=== PATIENT | female | born 1990 | race Caucasian/White ===

== ENCOUNTER 2016-04-24 16:04 | Inpatient (IN) ==
[2016-04-24] MEDS ORDERED: Naloxone 0.4 MG/ML INJ IVP PRN (16:58)
[2016-04-24] MEDS ORDERED: Famotidine 20 MG/2 ML VIAL IVP PRN (16:58)
--- NOTE | 2016-04-24 17:05 | OB/GYN History & Physical ---
Date of Encounter: 04/24/16 Time of Encounter: 17:00 Assessment and Plan (1) 40 weeks gestation of Current visit: Yes Status: Acute admit for IOL for nonreassuring surveillance post dates (2) Obesity affecting in third trimester Current visit: Yes Status: Acute admitted for IOL History of Present Illness Chief complaint: 40w1d BPP 6/[address] Manzano HPI: Ms. Sun is a 25 year old female at 40w1d with edc of 04/23/2016. Patient was seen in OB office today ultrasound BPP 6/8 no breathing noted, RENE 12cm, EFW 6#8oz 19th%tile. Dr. Manzano recommends delivery. Blood type: B Negative, Rubella: Immune, Hep B: Nonreactive, GBS: Negative. Past Med Surg Social Fam HX - Past Medical History Source: patient Medical history: no medical history Psychiatric history: anxiety - Past Surgical History Surgical History: no surgical history - Social History Smoking Status: Never smoker Smokeless Tobacco Status: No Alcohol use: none Drug use: none Occupational status: employed Current living situation: Home - Independent Activity Level: Independent ambulation Recent Out of Country Travel Within the Last 8 Weeks: No Exposure or Possible Exposure to Illness During Travel: No - Family History Maternal Grandfather Adopted: [place]: [place] Family Member Ethnicity: Non- Living Status: Still Living Hx Family Cardiac Disorders: Yes (pacemaker, angina, coronary artery disease, [place] ) Hx Family Respiratory Disorders: No Hx Family Cancer: No Hx Family GI Disorders: Yes (flipped stomach) Hx Family Genitourinary Disorders: No Hx Family Endocrine Disorder: No Hx Family Musculoskeletal Disorders: No Hx Family Neuromuscular Disorders: No Hx Family Neurologic Disorders: No Hx Family HEENT Disorders: No Hx Family Autoimmune Disorders: No Hx Family Reproductive Disorders: No Hx Family Psychosocial Disorders: No Hx Family Medical Disorders: No Obstetrical History - Pregnancies : 1 Para: 0 Term: 0 : 0 Ab's: 0 Livin Medications and Allergies [id number]/FA/Omega3/Dha/Fish Oil [ Gummies] 1 each PO DAILY #30 tab.chew [Rx] Docusate [Colace] 100 mg PO BID 01/24/16 [History] Omeprazole Magnesium [Prilosec Otc] 20 mg PO BID 01/24/16 [History] Allergies No Known Allergies Allergy (Verified 02/12/16 16:49) Review of System OB - Constitutional Constitutional ROS IM: no chills, no fever(s), no headache(s) - Cardiovascular Cardiovascular: no chest pain, no dyspnea, no palpitations, no syncope - Respiratory Respiratory: no dyspnea - Gastrointestinal Gastrointestinal: no abdominal pain, no constipation, no cramping, no diarrhea, no heartburn, no nausea, no vomiting - Genitourinary Genitourinary: no abnormal vaginal bleeding, no dysuria, no flank pain, no urinary frequency, no urinary hesitancy, no urinary incontinence, no urinary urgency, no vaginal discharge, no vaginal odor, no vaginal pruritis Exam - Constitutional Constitutional: well developed, well nourished, no acute distress, average body habitus - HEENT HEENT: Normocephaly, Mucus Membranes Moist - Neck Neck exam: full ROM, supple - Lungs Respiratory exam: CTAB - Cardiovascular Cardiovascular exam: RRR, +S1, +S2 - Abdomen Abdomen: Present: bowel sounds normal, gravid, non tender - Extremities Extremities exam: full ROM, normal capillary refill Deep Tendon Reflex Grade: 2+ Normal - Cervix Dilation: 0 (FT) Effacement: 50 Station: -1 - Uterus Uterus exam: Present: normal size, normal contour - Anus/Rectum Anus/Rectum: Present: normal perianal skin - Comments Comments: FHR 135 bpm moderate variability +15x15 accels no decels noted. CAt. 1 tracing. Irregular contractions noted. Results All other labs normal. - VTE Reasons for not Prescribing Prophylaxis: Treatment not Indicated - Low risk for VTE
[2016-04-24 17:12] LABS: Basophils % 0.2 %; Eosinophils # 0.1 K/mcL (0.0-0.6); Eosinophils % 0.7 %; Hematocrit 33.8 % (35.3-44.9); Hemoglobin 10.8 g/dL (11.5-15.4); Immature Granulocytes % 0.4 % (0-4); Mean Corpuscular Hemoglobin 24.5 pg (28.0-33.3); Mean Corpuscular Volume 76.6 fL (83.0-100.0); Mean Platelet Volume 9.1 fL (9.4-12.4); Monocytes # 0.6 K/mcL (0.0-1.3); Monocytes % 4.4 %; Neutrophils # 10.8 K/mcL (1.6-8.9); Platelet Count 301 K/mcL (140-400); Red Blood Count 4.41 M/mcL (3.82-4.97); Segmented Neutrophils % 79.3 %
[2016-04-24 17:23] LABS: Alanine Aminotransferase 8 Units/L (0-55); Aspartate Amino Transferase 11 Units/L (5-34); BUN/Creatinine Ratio 18 (6-26); Blood Urea Nitrogen 12 mg/dL (7-20); Lactate Dehydrogenase 134 Units/L (159-327); Uric Acid 3.8 mg/dL (2.6-6.0); eGFR For African Americans > 60 (> 60); eGFR For Non-African Americans > 60 (> 60)
[2016-04-24] MEDS ORDERED: miSOPROStol 25 MCG TABLET VG PRN (18:04)
[2016-04-24] MEDS ORDERED: miSOPROStol 25 MCG TABLET PO PRN (18:05)
--- NOTE | 2016-04-24 22:23 | OB Labor Progress Note ---
Date of Encounter: 04/24/16 Time of Encounter: 22:21 Labor Progress Note - Subjective Subjective: Pt with minimal pain at this time. - Cervix Cervix: /-2 - Heart Tones Heart Tones: Category I - [place]: 1.5-3 minutes - Interventions Interventions: Ya placed in cervix using sterile technique. Balloon inflated with 30ml sterile water. - Plan Plan: Continue to monitor. Will continue cytotec for induction and AROM when able. Pt may have epidural if and when desired.
[2016-04-24] MEDS ORDERED: *HR* Nalbuphine 20 MG/ML AMPUL ONE (22:55)
[2016-04-24] MEDS: Ondansetron 4 MG/2 ML VIAL IVP PRN (22:59)
[2016-04-24] MEDS: *HR* Nalbuphine 20 MG/ML AMPUL IVP PRN (23:00)
[2016-04-24] MEDS: Ringers Solution, Lactated 1,000 ML IVC SCH (23:00)
[2016-04-25] MEDS: Ringers Solution, Lactated 1,000 ML IVC SCH ×2 (03:02→06:39)
[2016-04-25] MEDS ORDERED: Oxytocin 20 units/ LR 1000 mL 20 UNIT/1,000 ML BAG IVC SCH (04:28)
[2016-04-25] MEDS: *HR* Nalbuphine 20 MG/ML AMPUL IVP PRN (05:46)
--- NOTE | 2016-04-25 07:05 | Anesthesia Evaluation PreOp ---
Date of Encounter: 04/25/16 Time of Encounter: 06:50 - Past History Planned Operation: epidural Cardiac History: Other ( patient states has occasional chest pain, was told is caused from stress, no heart murmur, or irregular heart beats noted on auscultation, patient can climb stairs without difficulty) Pulmonary History: Denies Any Significant HX IMPROVEMENT RN History: Denies Any Significant HX Other Medical History: Denies Any Significant HX Anesthesia History: No Prior Anesthetic Complications (never had anesthesia) : Yes Test: Positive Alcohol Use: none Drug use: none Medications and Allergies Wsp709/FA/Omega3/Dha/Fish Oil [ Gummies] 1 each PO DAILY #30 tab.chew [Rx] Docusate [Colace] 100 mg PO BID 01/24/16 [History] Omeprazole Magnesium [Prilosec Otc] 20 mg PO BID 01/24/16 [History] Allergies No Known Allergies Allergy (Verified 02/12/16 16:49) - Meds/Allergy Pre-op Review Medications Reviewed: Yes Allergies Reviewed: Yes Beta Blockers on Current Med List: No Anesthesia Results - Labs 04/24/16 17:00 04/24/16 17:00 Anesthesia Exam 3 Vital Signs Time 0655 BP 147/83 Pulse 75 Resp 18 O2 Sat Height: 64 Weight: 108 kg NPO (# of Hours): 9 pm solids Pain Scale: 7 Pain Scale Used: Numeric (1 - 10) - HEENT Pupil (Motor): Pupils equal (lower lip studs removed) Mallampati: II Teeth: Normal Oral Opening: Greater than 3 - IMPROVEMENT RN LOC: Oriented IMPROVEMENT RN Motor: Normal RUE, Normal LUE, Normal RLE, Normal LLE, Normal Face IMPROVEMENT RN Sensory: Normal: RUE, LUE, RLE, LLE, Face - Cardiac Rhythm: Regular Murmur: None JVD: No Carotid Bruit: No - Pulmonary Breath Sounds: bilateral Clear Respiratory Effort: Symmetrical Anesthesia Assess/Plan ASA Score: 2 Modified Iker Scale for Level of Consciousness: Cooperative, oriented, and tranquil Anesthetic Plan: Regional Recovery Plan: Other
[2016-04-25] MEDS ORDERED: Epidural Premix (fent/bupiv) 110 ML EP ONE (07:06)
[2016-04-25] MEDS ORDERED: *HR* FentaNYL (PF) 100 MCG/2 ML VIAL ONE ×2 (07:06→12:49)
[2016-04-25] MEDS ORDERED: *HR* Ropivacaine/PF 0.2% 10 ML AMPUL ONE (07:06)
[2016-04-25] MEDS ORDERED: Epidural Premix (fent/bupiv) 110 ML EP SCH (07:15)
[2016-04-25] MEDS ORDERED: *HR* FentaNYL (PF) 100 MCG/2 ML VIAL EP ONE (07:15)
[2016-04-25] MEDS ORDERED: Bupivacaine-MPF 0.25% 10 ML VIAL EP ONE (07:15)
--- NOTE | 2016-04-25 07:35 | Anesthesia Procedures ---
Date of Encounter: 04/25/16 Time of Encounter: 07:14 Procedures: Anesthesia - Epidural/Spinal Patient ID/Chart reviewed: Yes Patient examined: Yes OB Eval: Gestational age: 40.2 OB Eval: : 1 OB Eval: Hx Para: 0 OB Eval: Dilated at (cm): 5 OB Eval: Contractions: Non-stressed pattern Consent Obtained: Yes Supplemental Oxygen: None/Room Air Site Prep: Aseptic Technique, Sterile prep and drape, 0.5% Chlorhexidine/Alcohol Patient position: upright Local Anesthetic: Lidocaine 1% Amount of Local Anesthetic used: 2.5 Touhy Needle Gauge: 18 Touhy Needle Depth (cm): 9 Catheter Depth at Skin (cm): 15 Test Dose (1.5% Lido + Epi): Volume given (mls): 5 Test Dose Result: Negative Loading Dose: Fentanyl (mcg): 100 Loading Dose: Other: Ropivacaine 0.2% 10mL Loading Dose Administered: Thru Catheter Infusion Med: 0.125% Bupivacaine w/ 2 mcg/ml Fentanyl Infusion Rate (mls/hr): 14 (Bolus 4mL q15min; Max 3/hr) Catheter Secured in Place: Tegaderm, Tape Interspace Used: L3-L4 Loss of Resistance (AMAN): Yes Blood: No CSF: No Paresthesia: No Procedure: x1 attempt. Patient tolerated well. Vitals + FHT's: VSS and FHR stable throughout procedure. See nursing documentation.
[2016-04-25] MEDS ORDERED: Chloroprocaine/PF 20 ML VIAL INFILT ONE (08:00)
[2016-04-25] MEDS ORDERED: *HR* Morphine Sulfate/PF 5 MG/10 ML AMPUL ONE ×2 (08:01→12:48)
[2016-04-25] MEDS ORDERED: *HR* Oxytocin 10 UNIT/ML VIAL IM ONE ×3 (09:19→14:09)
--- NOTE | 2016-04-25 10:21 | OB Labor Progress Note ---
Date of Encounter: 04/25/16 Time of Encounter: 10:17 Labor Progress Note - Subjective Subjective: Pt now comfortable with epidural. - Cervix Cervix: 5/70/-2 - Heart Tones Heart Tones: Category II, prolonged decelerations noted after epidural placement. Variable decelerations occassionally now. - [place]: 3-5 minutes - Interventions Interventions: AROM performed at 0618 for small amount clear fluid. Epidural given. IUPC and FSE placed. Pt repositioned multiple times. IV bolus given. O2 via facemask. Pitocin off. Dr. Mckeon at bedside. He recommends delivery if late or prolonged decels return. - Plan Plan: Continue to monitor. Restart pitocin when able.
[2016-04-25] MEDS ORDERED: 0.9 % Sodium Chloride 1,000 ML ONE (12:33)
[2016-04-25] MEDS ORDERED: Metoclopramide 10 MG/2 ML VIAL IVP ONE (12:53)
[2016-04-25] MEDS ORDERED: Ketamine *HR* 500 MG/10 ML MDV ONE (13:15)
[2016-04-25] MEDS ORDERED: Ringers Solution, Lactated 1,000 ML ONE ×2 (13:19→14:05)
[2016-04-25] MEDS ORDERED: Lidocaine -MPF 2% 5 ML VIAL INFILT ONE ×2 (13:30→14:35)
[2016-04-25] MEDS ORDERED: *HR* Succinylcholine 200 MG/10 ML VIAL IVP ONE (13:53)
[2016-04-25] MEDS ORDERED: *HR* HYDROmorphone (PF) 1 MG/ML SYRINGE ONE ×2 (13:56→14:39)
[2016-04-25] MEDS ORDERED: Ondansetron 4 MG/2 ML VIAL IVP PRN ×2 (14:28→14:49)
[2016-04-25] MEDS ORDERED: *HR* HYDROmorphone (PF) 1 MG/ML SYRINGE IVP PRN (14:28)
[2016-04-25] MEDS ORDERED: *HR* Promethazine 25 MG/ML VIAL IVP PRN (14:28)
[2016-04-25] MEDS ORDERED: Naloxone 0.4 MG/ML INJ IVP PRN (14:28)
[2016-04-25] MEDS ORDERED: Metoclopramide 10 MG/2 ML VIAL IVP PRN (14:49)
[2016-04-25] MEDS ORDERED: Sennosides 8.6 MG TABLET PO PRN (14:49)
[2016-04-25] MEDS ORDERED: Rho Immune Globulin 1,500 UNIT SYRINGE IM ONE (14:49)
[2016-04-25] MEDS ORDERED: Simethicone 80 MG TAB.CHEW PO PRN (14:49)
[2016-04-25] MEDS ORDERED: Oxytocin 20 units/ LR 1000 mL 20 UNIT/1,000 ML BAG IV SCH (15:00)
[2016-04-25] MEDS ORDERED: Ringers Solution, Lactated 1,000 ML IVC SCH (15:00)
[2016-04-25] MEDS: Ondansetron 4 MG/2 ML VIAL IVP PRN (18:29)
[2016-04-25] MEDS: *HR* OxyCODONE/APAP 5/325 TABLET PO PRN (18:30)
--- NOTE | 2016-04-25 19:30 | Anesthesia Evaluation Post Op ---
Date of Encounter: 04/25/16 Time of Encounter: 15:20 - Vital Signs Vital Signs: Vital Signs 04/25/16 17:05 04/25/16 17:35 04/25/16 18:05 Temperature 98.5 F 98.6 F 98.3 F Pulse Rate 95 98 96 Respiratory Rate 16 16 18 Blood Pressure 145/84 144/84 137/92 O2 Sat by Pulse Oximetry 96 96 96 04/25/16 19:05 Temperature 99.3 F Pulse Rate 98 Respiratory Rate 16 Blood Pressure 135/82 O2 Sat by Pulse Oximetry 98 - Lungs Lungs: Clear Ascult./Percussion - Airway Airway: Non-obstructed - Cardiovascular Regular Rate - Mental Status Mental Status: Alert & Oriented, Answers Appropriately - Pain Pain Scale: 6 Pain Scale used: Numeric (1 - 10) - Nausea Vomiting Nausea Vomiting: Not Present - Hydration Hydration: Tolerates oral liquids - Discharge PostOp Status: Transfer Patient to floor Attestation: MOEx4. Patient alert and communicative. Meets criteria for floor transfer.
[2016-04-26] MEDS: *HR* OxyCODONE/APAP 5/325 TABLET PO PRN ×3 (00:18→21:58)
[2016-04-26 05:14] LABS: Basophils % 0.2 %; Eosinophils % 0.2 %; Immature Granulocytes % 0.6 % (0-4); Immature Platelets 1.9 % (1.1-6.1); Lymphocytes % 11.7 %; Mean Corpuscular HGB Conc 32.5 g/dL (31.6-35.5); Mean Corpuscular Hemoglobin 25.1 pg (28.0-33.3); Mean Corpuscular Volume 77.1 fL (83.0-100.0); Mean Platelet Volume 9.4 fL (9.4-12.4); Monocytes # 0.8 K/mcL (0.0-1.3); Monocytes % 4.8 %; Neutrophils # 13.8 K/mcL (1.6-8.9); Platelet Count 253 K/mcL (140-400); Red Blood Count 3.63 M/mcL (3.82-4.97); Segmented Neutrophils % 82.5 %
[2016-04-26 05:15] LABS: Hemoglobin 9.1 g/dL (11.5-15.4)
[2016-04-26] MEDS: Ibuprofen 600 MG TABLET PO PRN ×2 (06:38→19:47)
--- NOTE | 2016-04-26 07:39 | OB/GYN Procedure Note ---
Section - Date of procedure: 04/25/16 Preop diagnosis: category 2 FHT tracing Post-op diagnosis: same Procedure: section, primary low transverse Surgeon: Mellissa Mckeon Estimated blood loss (cc): 600 Anesthesiologist: John Rush Trailer Mechanic: Alex Woo Anesthesia Type: Epidural section complications: none Disposition: L&D Recovery Room Specimens: Placenta, Cord blood - Infant (s) A Delivery Date: 04/25/16 Delivery Time: 13:36 Presentation: vertex Gender: Female Gram Weight: 3025 kg at 1 minute: 9 at 5 minutes: 9 Shoulder Dystocia: not encountered Placenta: complete extraction - Narrative Narrative: The patient was brought to the operating suite in stable condition with epidural anesthesia on board and an indwelling catheter in place in the bladder. The patient was placed supine on the operating room table and rolled to her left side with a wedge. The abdomen was prepped and draped in standard fashion for section. After testing with forceps to assure an adequate anesthetic level, the surgery was commenced. With the scalpel, a Pfannenstiel skin incision was made. Dissection was carried down sharply through the subcutaneous tissues and fascia in a transverse plane with the scalpel, electrocautery and curved Kim scissors. The fascia was sharply freed up superiorly and inferiorly from the underlying rectus muscles, which were bluntly and sharply divided. The peritoneum was entered carefully in a clear space with a curved hemostat. The peritoneal incision was then extended bluntly. A retractor and bladder blade were placed. With a scalpel, a low transverse hysterotomy was commenced. The serosa and myometrium were scored with the scalpel. The uterine cavity was actually entered bluntly. The uterine incision was then extended laterally with the automatic operator's fingers. An intrauterine hand was placed and the head of the was brought up out of the pelvis into the uterine incision. With fundal pressure, he was delivered without difficulty. The nasopharynx and oropharynx were suctioned. The cord was doubly clamped and transected. The infant was then handed off to the nursery personnel. Further cord blood was collected for routine testing. Intravenous Pitocin and antibiotics were administered. The placenta was manually removed. The uterine cavity was then curetted with a dry sponge and freed of the remaining membranes. The edges of the uterine incision were grasped with Nicolas clamps. With the massage and the Pitocin , the uterus began to firm up normally. The uterine incision was then closed in 1 layers of 0 Vicryl suture. The uterine incision was reinspected to assure hemostasis. The uterus, tubes and ovaries were inspected and were normal. Once we were satisfied with the hemostasis, attention was turned to closure of the abdominal incision. The fascia was closed in using 0-Vicryl sutures. The subcutaneous tissue was closed with 3-0 vicryl sutures. The skin was closed with a subcuticular suture of 4-0 Vicryl followed by benzoin, Steri-Strips and a Telfa dressing. The patient was moved to the recovery room in stable condition with the Ya catheter draining clear urine. Instruments, sponge and needle counts were reported as correct. Estimated blood loss was 600 mL. There were no complications.
[2016-04-26] MEDS: Prenatal Vit/FA 1 EACH TABLET PO SCH (08:17)
--- NOTE | 2016-04-26 09:28 | OB/GYN Progress Note ---
Date of Encounter: 04/26/16 Time of Encounter: 09:27 - Assessment and Plan (1) delivery delivered Current Visit: Yes Status: Acute Pt meeting POD#1. Plan to ambulate in hallway today. Await flatus. Anticipate discharge home POD#2-3. (2) anemia Current Visit: Yes Status: Acute (3) Mother currently breast-feeding Current Visit: Yes Status: Acute Subjective - Subjective Patient reports: appetite normal, voiding normally, pain well controlled, ambulating normally [place]: doing well Objective - Vital Signs Latest vital signs: Vital Signs Temp Pulse Resp BP Pulse Ox 04/26/16 08:32 18 04/26/16 05:09 98.7 F 80 16 118/81 99 04/26/16 05:07 16 04/26/16 00:47 97.6 F 81 14 130/81 97 04/26/16 00:01 14 04/25/16 20:07 98.0 F 94 14 144/91 97 04/25/16 20:05 98.0 F 94 14 144/91 97 04/25/16 19:05 99.3 F 98 16 135/82 98 04/25/16 18:05 98.3 F 96 18 137/92 96 04/25/16 17:35 98.6 F 98 16 144/84 96 04/25/16 17:05 98.5 F 95 16 145/84 96 Intake and Output 04/25/16 04/26/16 04/26/16 23:59 07:59 15:59 Intake Total 300 / 300 Output Total 400 / 400 Balance -400 / -400 300 / 300 Intake: Oral 300 / 300 Output: Catheter 400 / 400 Other: Meal Breakfast Percent of Meal Consumed 50% Weight 109.1 kg 105 kg Patient Weight 04/26/16 23:59 Weight 105 kg - Exam Lungs: bilateral: normal Chest: Normal S1, Normal S2 Extremities: Present: normal, edema (1+ bilaterally) Abdomen: Present: soft Incision: Present: dressed (dressing dry and intact) Uterus: Present: firm - Labs Labs: Laboratory Results - last 24 hr 04/25/16 04/26/16 13:51 04:32 WBC 16.7 H RBC 3.63 L Hgb 9.1 L D Hct 28.0 L MCV 77.1 L MCH 25.1 L MCHC 32.5 RDW 15.0 H Plt Count 253 MPV 9.4 Immature Gran % 0.6 Seg Neutrophils % 82.5 Lymphocytes % 11.7 Monocytes % 4.8 Eosinophils % 0.2 Basophils % 0.2 Neutrophils # 13.8 H Lymphocytes # 2.0 Monocytes # 0.8 Eosinophils # 0.0 Basophils # 0.0 Immature Plt Fraction 1.9 Screen NEGATIVE Baby's Blood Type B RH POSITIVE Mother's Blood Type B RH NEGATIVE Rhogam Indicated YES Rhogam Req for Mother 1
[2016-04-26] MEDS ORDERED: Rho Immune Globulin 1,500 UNIT SYRINGE IM ONE (22:00)
[2016-04-27] MEDS: Prenatal Vit/FA 1 EACH TABLET PO SCH (08:08)
[2016-04-27] MEDS: *HR* OxyCODONE/APAP 5/325 TABLET PO PRN (08:08)
[2016-04-27 10:34] VITALS: BP 127/84
--- NOTE | 2016-04-27 11:02 | OB/GYN Progress Note ---
Date of Encounter: 04/27/16 Time of Encounter: 11:00 - Assessment and Plan (1) delivery delivered Current Visit: Yes Status: Acute Pt states she is feeling well. meeting milestones. Continue current management. (2) anemia Current Visit: Yes Status: Acute continue iron supplementation Subjective - Subjective Interval history: Pt resting in bed with skin to skin. Pt states she is feeling better, but has concerns with and is not feeding well Patient reports: appetite normal : doing well, other (not well. ) Objective - Latest Vital Signs Latest vital signs: Vital Signs Temp Pulse Resp BP Pulse Ox 04/27/16 09:00 97.8 F 79 18 127/84 97 04/27/16 08:16 14 04/27/16 05:19 97.8 F 88 14 116/76 97 04/26/16 20:40 98.2 F 91 16 108/69 99 04/26/16 14:17 18 04/26/16 11:30 98.2 F 88 16 121/77 97 Intake and Output 04/26/16 04/27/16 04/27/16 23:59 07:59 15:59 Intake Total 120 / 120 500 / 500 Output Total 1000 / 1000 700 / 700 Balance -880 / -880 -200 / -200 Intake: Oral 120 / 120 500 / 500 Output: Urine 1000 / 1000 700 / 700 Other: Meal Dinner Breakfast Percent of Meal Consumed 75% 50% Weight 106.5 kg Patient Weight 04/27/16 23:59 Weight 106.5 kg - Exam Lungs: bilateral: normal Chest: Normal S1, Normal S2 Extremities: Present: normal Abdomen: Present: soft Uterus: Present: normal, firm Uterus Position: At Umbilicus
--- NOTE | 2016-04-27 14:10 | Discharge Summary ---
Date of Encounter: 04/27/16 Time of Encounter: 14:10 - Discharge Diagnosis (1) delivery delivered Priority: Primary Status: Acute (2) anemia Priority: Secondary Status: Acute - Discharge Medications Prescriptions: OxyCODONE/APAP 5/325 [Percocet 5/325 MG] 1 each PO Q4HR PRN #30 tablet PRN Reason: Moderate pain 4-6 Ibuprofen [Motrin] 600 mg PO Q6HR PRN #60 tablet PRN Reason: Cramping Ferrous Sulfate 325 mg PO DAILY #60 tablet Home Medications: Ibi033/FA/Omega3/Dha/Fish Oil [ Gummies] 1 each PO DAILY #30 tab.chew [Rx] Docusate [Colace] 100 mg PO BID 01/24/16 [History] Omeprazole Magnesium [Prilosec Otc] 20 mg PO BID 01/24/16 [History] Breast Pump [BREAST PUMP] 1 each .ROUTE AD #1 each 04/27/16 [Rx] Docusate [Colace] 100 mg PO BID #60 capsule 04/27/16 [Rx] Ferrous Sulfate 325 mg PO DAILY #60 tablet 04/27/16 [Rx] Ibuprofen [Motrin] 600 mg PO Q6HR PRN #60 tablet 04/27/16 [Rx] OxyCODONE/APAP 5/325 [Percocet 5/325 MG] 1 each PO Q4HR PRN #30 tablet 04/27/16 [Rx] Allergies/Adverse Reactions: Allergies No Known Allergies Allergy (Verified 02/12/16 16:49) Data Procedures and tests throughout hospitalization: Laboratory Tests 04/24/16 04/24/16 04/25/16 17:00 17:00 13:51 WBC 13.6 H RBC 4.41 Hgb 10.8 L Hct 33.8 L MCV 76.6 L MCH 24.5 L MCHC 32.0 RDW 15.0 H Plt Count 301 MPV 9.1 L Immature Gran % 0.4 Seg Neutrophils % 79.3 Lymphocytes % 15.0 Monocytes % 4.4 Eosinophils % 0.7 Basophils % 0.2 Neutrophils # 10.8 H Lymphocytes # 2.0 Monocytes # 0.6 Eosinophils # 0.1 Basophils # 0.0 Immature Plt Fraction BUN 12 Creatinine 0.68 Est GFR ( Amer) > 60 Est GFR (Non-Af Amer) > 60 BUN/Creatinine Ratio 18 Uric Acid 3.8 AST 11 ALT 8 Lactate Dehydrogenase 134 L Screen NEGATIVE Baby's Blood Type B RH POSITIVE Mother's Blood Type B RH NEGATIVE Rhogam Indicated YES Rhogam Req for Mother 1 04/26/16 04:32 WBC 16.7 H RBC 3.63 L Hgb 9.1 L D Hct 28.0 L MCV 77.1 L MCH 25.1 L MCHC 32.5 RDW 15.0 H Plt Count 253 MPV 9.4 Immature Gran % 0.6 Seg Neutrophils % 82.5 Lymphocytes % 11.7 Monocytes % 4.8 Eosinophils % 0.2 Basophils % 0.2 Neutrophils # 13.8 H Lymphocytes # 2.0 Monocytes # 0.8 Eosinophils # 0.0 Basophils # 0.0 Immature Plt Fraction 1.9 BUN Creatinine Est GFR ( Amer) Est GFR (Non-Af Amer) BUN/Creatinine Ratio Uric Acid AST ALT Lactate Dehydrogenase Screen Baby's Blood Type Mother's Blood Type Rhogam Indicated Rhogam Req for Mother Date of admission: 04/24/16 16:04 Primary care physician: PCP ANANDA Discharging clinician: Romy Cheatham Anticipated date of discharge: 04/27/16 - Patient Status Disposition: Home, Self-Care Functional capacity at discharge: independent ambulation Overall status at discharge: patient is back to baseline - Discharge Instructions Follow Up With: ANANDA,PCP [Primary Care Provider] - Mellissa Mckeon MD [Partnered Physician] - - Diet and Activity Activity: resume usual activities as tolerated Diet: regular diet Hospital Course Reason for admission: induction of labor Delivery: section complications: none Discharge diagnosis: IUP at term delivered baby: female Hospital course: Section - Date of procedure: 04/25/16 Preop diagnosis: category 2 FHT tracing Post-op diagnosis: same Procedure: section, primary low transverse Surgeon: Mellissa Mckeon Estimated blood loss (cc): 600 Anesthesiologist: John Rush Manager Pediatric: Alex Woo Anesthesia Type: Epidural section complications: none Disposition: L&D Recovery Room Specimens: Placenta, Cord blood - (s) A Delivery Date: 04/25/16 Delivery Time: 13:36 Presentation: vertex Gender: Female Gram Weight: 3025 kg at 1 minute: 9 at 5 minutes: 9 Shoulder Dystocia: not encountered Placenta: complete extraction Stable and appropriate for discharge Time Attestation: Total time spent providing and/or coordinating discharge services: Time Spent: Less than 30 minutes - VTE Reasons for not Prescribing Prophylaxis: Treatment not Indicated - Low risk for VTE Documentation of Mechanical Device: Intermittent pneumatic compression device Exam - Constitutional Vitals: Temp Pulse Resp BP Pulse Ox 97.8 F 79 18 127/84 97 04/27/16 09:00 04/27/16 09:00 04/27/16 09:00 04/27/16 09:00 04/27/16 09:00 General appearance IM: A&O X 3
== END 2016-04-27 17:09 | disposition home or self-care (01) | DRG 765 ==
LOC: 1NENULAB 16:04 → 1NENUOBS 04-25 17:20
PROVIDERS: ADMIT Obstetrics & Gynecology; ATTEND Obstetrics & Gynecology